=== PATIENT | female | born 1995 | race Two or more races ===

== ENCOUNTER 2023-01-01 09:10 | Emergency (ER) | payer OTHER ==
[~2023-01-01] VITALS: Ht 165.1 cm; Wt 55.8 kg
[2023-01-01 10:22] LABS: HEMATOCRIT 34.4 % (36.0-45.00); HEMOGLOBIN 11.5 g/dL (12.0-15.00); MEAN CELL VOLUME 79.7 fL (80.00-100.00); MEAN CORPUSCULAR HEMOGLOBIN 26.7 pg (27.00-32.0); MEAN CORPUSCULAR HGB CONC 33.5 g/dl (32.0-36.0); PLATELET COUNT 237 K/uL (150-450); RED BLOOD COUNT 4.31 M/uL (4.00-6.00); RED CELL DISTRIBUTION WIDTH 14.5 % (11.5-14.5)
[2023-01-01 10:25] LABS: PH,URINE 7.5 (5.0-8.0); URINE APPEARANCE Clear; URINE BILIRRUBIN Negative (NEGATIVE); URINE BLOOD Small; URINE COLOR Yellow; URINE GLUCOSE Negative (NEGATIVE); URINE LEUKOCYTE Trace; URINE NITRATE Negative; URINE PROTEIN Negative (NEGATIVE); URINE UROBILINOGEN 0.2 E.U./dl
[2023-01-01 10:30] LABS: URINE BACTERIA 234.3 uL (0.0-1933); URINE EPITHELIAL CELLS 14.6 uL (0.0-38.8); URINE RBC 3.1 uL (0.0-20.8)
[2023-01-01 11:05] LABS: CALCIUM 9.3 mg/dL (8.5-10.1); CREATININE SERUM 0.54 mg/dL (0.55-1.02); GFR 137.55; POTASSIUM 4.04 mEq/L (3.5-5.1)
== END 2023-01-01 12:55 | disposition home or self-care (01) ==
LOC: ER 09:10
PROVIDERS: General Practice
DX: O36.80X0 Pregnancy with inconclusive fetal viability, not applicable or unspecified (principal); O26.859 Spotting complicating pregnancy, unspecified trimester; Z3A.01 Less than 8 weeks gestation of pregnancy

== ENCOUNTER 2023-01-08 12:46 | Outpatient (CLI) | payer OTHER | END 2023-01-08 12:50 | disposition home or self-care (01) | LOC: PRENATAL 12:46 | PROVIDERS: ATTEND Obstetrics & Gynecology Maternal & Fetal Medicine | DX: O36.80X0 Pregnancy with inconclusive fetal viability, not applicable or unspecified (principal); O26.859 Spotting complicating pregnancy, unspecified trimester; Z3A.01 Less than 8 weeks gestation of pregnancy ==